=== PATIENT | female | born 1970 | race Caucasian/White ===

== ENCOUNTER 2017-03-23 11:15 | Emergency (ER) | payer SELFPAY ==
--- NOTE | ~2017-03-23 | ER ---
ADMIT: 03/23/2017 RM/LOC: ER [facility] MR#: [id number] [facility] [address] [place], [place] [id number] HITESH HARO [address] [place] [address] Emergency Room Report SEX: F AGE: 46 : 1970 DATE: 03/23/2017 ADDENDUM: This patient comes in to the ER because she is having severe pain in her rectum. It has gotten more so over the last couple of days. She has noticed some discomfort there over the last month. She saw a family care doctor in [place]. They did an exam on her and told her thought she was severely constipated. She did several enemas, went back to re-evaluate them after not having any success, and they told her that she needed to see a steward/stewardess club car. They did no imaging on her. Here in the emergency room, she has a large hard mass about the size of a ping pong ball in her rectum that I can also feel through the wall of the vagina. Her CBC and BMP were normal. CT scan showed inflammatory changes. Considerations include colitis versus infiltrating mass. Biopsy recommended. I spoke with Dr. Paige, the surgeon on-call and he would like to follow up with this patient in clinic on Friday. Until then, he would like me to put her on Cipro and Flagyl and pain medicine. I wrote a prescription for [place]. She is to call the office tomorrow. Please see my T-sheet. DIAGNOSES: 1. Rectal mass. 2. Proctitis. SIRENA Casanova / Jovan Stacy MD / urma JOB #: [id number] CC: Jovan Stacy MD, Attending Physician UNKNOWN, Family Physician
== END 2017-03-23 14:50 | disposition home or self-care (01) ==
LOC: ER 11:15
DX: K62.89 Other specified diseases of anus and rectum (principal)